=== PATIENT | female | born 1955 | race Caucasian/White ===

== ENCOUNTER 2019-01-06 13:46 | Outpatient (REF) | payer MEDICAID, SELFPAY ==
[2019-01-06 19:46] LABS: ALT 18 U/L (12-78); AST 15 U/L (15-37); Albumin 3.9 g/dL (3.4-5.0); Alkaline Phosphatase 67 U/L (46-116); BUN 16 mg/dL (7-18); Bilirubin, Total 0.3 mg/dL (0.2-1.0); CREATININE 0.88 mg/dL (0.55-1.02); Calcium 9.5 mg/dL (8.5-10.1); Chloride 103 mmol/L (98-107); Cholesterol 225 mg/dL (50-200); Glucose 91 mg/dL (70-100); HDL Cholesterol 74 mg/dL (40-60); LDL CHOLESTEROL 130 mg/dL (<100); Potassium 4.2 mmol/L (3.5-5.1); Sodium 140 mmol/L (136-145); TSH (W/Ref FT4) 3.76 uIU/mL (0.358-3.74); Total Protein 6.8 g/dL (6.4-8.2); Triglyceride 87 mg/dL (30-150)
[2019-01-06 20:21] LABS: FREE T4 1.04 ng/dL (0.76-1.46)
== END 2019-01-06 14:06 ==
LOC: NCHCN 13:46
PROVIDERS: PCP Nurse Practitioner; Visit Provider Nurse Practitioner
DX: I10 Essential (primary) hypertension (principal); E78.5 Hyperlipidemia, unspecified; E55.9 Vitamin D deficiency, unspecified; F32.9 Major depressive disorder, single episode, unspecified
CPT/HCPCS: 80053; 80061; 82306; 83721; 84439; 84443

== ENCOUNTER 2019-04-08 11:45 | Outpatient (CLI) | payer MEDICAID, SELFPAY ==
--- NOTE | 2019-04-08 11:38 | DI.RAD_ITS ---
SYMPTOM/DIAGNOSIS: PAIN LEFT KNEE: The bony structures and joint spaces appear intact. The possibility of a very small joint effusion could not be entirely excluded. The examination is otherwise unremarkable.
== END 2019-04-08 12:05 ==
PROVIDERS: PCP Nurse Practitioner; Visit Provider Orthopaedic Surgery
DX: M25.562 Pain in left knee (principal); M25.462 Effusion, left knee
CPT/HCPCS: 73560

== ENCOUNTER 2019-05-12 00:34 | Outpatient (CLI) | payer MEDICAID, SELFPAY ==
--- NOTE | 2019-05-12 12:02 | DI.MRI_ITS ---
SYMPTOMS/DIAGNOSIS: INTERNAL DERANGEMENT, LEFT KNEE, TWISTED 1 MO AGO, CLICKS AND HURTS TO BEND MRI OF THE LEFT KNEE: Comparison is made with April,. Fat-suppressed T2 axial, proton density and fat-suppressed T2 sagittal, T1 and fat-suppressed T2 coronal and proton density oblique sagittal sequences were performed. There is a moderate-sized joint effusion and March's cyst. The anterior and posterior cruciate ligaments appear intact. There is a considerable amount of edema around the medial collateral ligament, but no focal tear. The lateral collateral ligaments and extensor mechanism appear intact. The lateral meniscus appears intact. The medial meniscus shows horizontal abnormal high signal in the body and posterior horn. There is also some irregular signal near the meniscotibial attachment of the meniscus. There is high signal in the medial tibial plateau consistent with bone contusion or trabecular microfracture. The distal femur appears intact. There is some cartilage thinning over the medial femoral condyle and medial tibial plateau. No focal osteochondral defect is seen. There is edema in the popliteus muscle as well as in the tibialis anterior and tibialis posterior muscles. There is also edema in the anterior subcutaneous fat. The popliteus tendon appears intact. IMPRESSION: 1. Contusion of the medial tibial plateau. 2. Horizontal tear of the posterior horn and body of the medial meniscus, as well as abnormal signal near the meniscotibial attachment. 3. Joint effusion and March's cyst. 4. Muscle edema in the popliteus, tibialis anterior and tibialis posterior muscles. 5. Question of a sprain of the medial collateral ligament.
== END 2019-05-12 00:54 ==
PROVIDERS: PCP Nurse Practitioner; Visit Provider Orthopaedic Surgery
DX: M23.92 Unspecified internal derangement of left knee (principal); S83.242A Other tear of medial meniscus, current injury, left knee, initial encounter; M25.462 Effusion, left knee; M71.22 Synovial cyst of popliteal space [Baker], left knee; R60.0 Localized edema; M62.89 Other specified disorders of muscle
CPT/HCPCS: 73721

== ENCOUNTER 2019-06-24 00:21 | Outpatient (CLI) | payer MEDICAID, SELFPAY ==
--- NOTE | 2019-06-24 12:53 | DI.MAMMO_ITS ---
EXAM: MG MAMMO SCREENING MG MAMMO SCREENING CLINICAL HISTORY: SCREENING Z12.39 SCREENING Z12.39 TECHNIQUE: Mammograms were interpreted according to the usual protocol including computer analysis w [employer] CAD system, tomosynthesis and C-view imaging. COMPARISON: 2009 through 2014. FINDINGS: The breasts are composed of heterogeneously dense fibroglandular densities, Breast Density category C . No suspicious masses or suspicious microcalcifications are seen. No skin thickening or abnormal axillary lymph nodes are seen. There has been no significant change from prior exams. There is motion on the left MLO view. Patie nt should return for repeat left MLO view at no additional charge. IMPRESSION: Left breast: BIRADS Category 1, negative mammogram. Yearly screening mammography is recommended. Right breast: BI-RADS Cat 0 - Assessment Incomplete: Need additional imaging evaluation BREAST DENSITY: The mammogram demonstrates the patient's breast tissue is dense. Dense breast tissue is very common and is not abnormal but dense breast tissue can make it harder to find cancer on a ma mmogram. Also, dense breast tissue may increase their breast cancer risk. This information about the result of the mammogram report was provided to the patient to raise their awareness. Use this report when you speak with the patient about their risks for breast cancer, which includes their family hist ory. At that time, you may recommend for more screening tests (Ultrasound or MRI) as they might be us eful based on their risk. A negative radiographic report should not delay biopsy if a dominant or clinically suspicious mass is present. Up to ten percent of cancers are not identified on mammography. A negative report may reinforce clinical impression. Adenosis and dense breasts may obscure an underlying neoplasm. False positive reports average 6 to 10%.
== END 2019-06-24 00:41 ==
PROVIDERS: PCP Nurse Practitioner; Visit Provider Nurse Practitioner
DX: Z12.31 Encounter for screening mammogram for malignant neoplasm of breast (principal); R92.8 Other abnormal and inconclusive findings on diagnostic imaging of breast
CPT/HCPCS: 77063; 77067

== ENCOUNTER 2019-07-12 08:12 | Day surgery (SDC) | payer MEDICAID, SELFPAY ==
--- NOTE | 2019-07-08 10:02 | W.PREOPHP ---
Date of service: 07/08/19 Assessment and Plan Assessment and plan (1) Internal derangement of left knee: Status: Acute Assessment and plan: Left knee arthroscopy with partial medial meniscectomy. Details of surgery were discussed with patient as well as risks and pertinent anatomy. All questions were answered. History of Present Illness History of Present Illness Chief Complaint: Left knee pain Narrative: Naila is a 63-year-old female who comes in today for a preop history and physical for a left knee arthroscopy. For the last couple of months, she has been dealing with left knee pain that bothers her the most when she is walking on uneven ground, up and down stairs, or when she is squatting or kneeling. She does not remember any specific injury, but thinks that she might have been when her dog pulled her down when she was walking about 2 months ago. During this fall she had a twisting motion to her left knee. She has not improved with home exercises for an injection, so ultimately she had an MRI which revealed a torn medial meniscus of her left knee. Because she has failed conservative treatment, Dr. Wright does offer a left knee arthroscopy, and she is anxious to proceed. Pertinent Surgical Information Patient denies history of CVA, CA, angina, COPD, renal or liver disorders, hepatitis, bleeding disorders, diabetes, immune or thyroid disorders. No complications from anesthesia. Review of Systems Constitutional Constitutional: Denies fever(s) ENT Ears, Nose, Mouth, and Throat: Denies dizziness and Denies sore throat Cardiovascular Cardiovascular: Denies chest pain, Denies palpitations and Denies dyspnea Respiratory Respiratory: Denies cough and Denies dyspnea Gastrointestinal Gastrointestinal: Denies abdominal pain, Denies melena, Denies hematochezia, Denies diarrhea, Denies nausea and Denies vomiting Genitourinary Genitourinary: Denies hematuria and Denies dysuria Neurologic Neurologic: Denies dizziness Endocrine Endocrine: Denies palpitations [facility] Medical History (Updated 06/16/19 @ 10:57 by Sofia Pal RN) Alcoholism (Acute) Asthma (Chronic) Depression (Chronic) Fibromyalgia (Acute) High cholesterol (Chronic) History of narcotic use (Acute) previous narcotic overdose History of tobacco use (Acute) Hypertension (Chronic) Spinal stenosis (Acute) Surgical History (Updated 06/16/19 @ 10:58 by Sofia Pal RN) Fracture, Open Treatment (09/07/12) RIGHT FEMUR ORIF History of arthroscopic knee surgery (Chronic) History of carpal tunnel release (Acute) History of hysterectomy (Chronic) sparing her ovaries History of tubal ligation (Chronic) Replacement of total knee joint (08/19/12) RIGHT KNEE Social History (Updated 07/08/19 @ 10:18 by CATHERINE Rojas) Smoking/Tobacco Use Status: Current every day Tobacco Type: cigarettes Smoking packs per day: 1 Smoking cigarettes per day: 20.0 Alcohol Intake: current Alcohol type: beer Details: 12-24 per weekend Drug use: Never Do you feel safe in your relationship?: Yes Meds Home Medications and Allergies Home Medications Medication Instructions Recorded Confirmed Type amitriptyline 40 mg PO HS 01/14/13 07/08/19 History hydrochlorothiazide 25 mg PO QAM 01/14/13 07/08/19 History lisinopril 20 mg PO QAM 01/14/13 07/08/19 History omeprazole 40 mg PO DAILY tab-cap 01/14/13 07/08/19 History orphenadrine citrate 100 mg PO QAM 01/14/13 07/08/19 History pravastatin 80 mg PO HS 01/14/13 07/08/19 History trazodone 150 mg PO HS tab-cap 01/14/13 07/08/19 History amlodipine 5 mg PO DAILY tab-cap 01/13/14 07/08/19 History oxaprozin 1,200 mg PO DAILY tab-cap 01/13/14 07/08/19 History celecoxib [Celebrex] 200 mg PO DAILY tab-cap 08/23/15 07/08/19 History albuterol sulfate [Proair Hfa] 2 puff INHALATION PRN PRN 08/22/16 07/08/19 History fluticasone propion-salmeterol 1 ea INHALATION BID 08/22/16 07/08/19 History [Advair 250-50 Diskus] sertraline 50 mg PO DAILY 12/16/16 07/08/19 History Allergies Allergy/AdvReac Type Severity Reaction Status Date / Time venom-honey bee Allergy Severe Anaphylaxsi Verified 07/08/19 09:58 s latex AdvReac Severe Skin Rash Verified 07/08/19 09:58 hydrocodone bitartrate AdvReac Intermediate abdominal Verified 07/08/19 09:58 [From Vicodin] pain chlorine AdvReac Mild Skin Rash Uncoded 07/08/19 09:58 Exam HENNY Head: normocephalic and atraumatic General nose exam: no nasal discharge Throat: uvula midline and no uvular edema Other: soft palate rises symmetrically, no erythema Eyes Conjunctivae: conjunctivae normal Sclera: sclerae normal Pupils: PERRL Resp Effort & Inspection: normal respiratory effort Auscultation: clear to auscultation bilaterally and no wheezes Cardio Rate: regular rate Rhythm: regular rhythm Heart Sounds: S1 normal, S2 normal and no murmurs GI Palpation: soft, no hepatosplenomegaly and nontender Auscultation: normal bowel sounds
[2019-07-12] VITALS (8 sets, daily range): BP systolic 133–158; BP diastolic 74–95; PULSE 73–93; RESP 11–18; TEMP 36.2–36.6; O2SAT 95–100
[2019-07-12] MEDS: Lactated Ringers 1,000 ML 80 ML IV ×2 (08:59→13:05)
[2019-07-12] MEDS: ceFAZolin 2 GM/50 ML BAG IVPB (11:00)
--- NOTE | 2019-07-12 12:09 | W.PM.DSUDISC ---
Discharge Plan Disposition Patient Disposition: HOME Condition: Good Discharge Details Attending Provider: Juan Daniel Wright Primary Care Provider: Cece Herrmann Home Meds and New Rx's Prescriptions: New ibuprofen 800 mg tablet 800 mg PO TID Qty: 30 RF: 0 oxycodone-acetaminophen 5-325 mg tablet 1 tab PO Q6H PRN (Reason: pain) Qty: 20 RF: 0 Continued omeprazole 40 MG capsule,delayed release(DR/EC) 40 mg PO DAILY RF: 0 pravastatin 80 MG tablet 80 mg PO HS RF: 0 amitriptyline 10 MG tablet 40 mg PO HS RF: 0 trazodone 150 MG tablet 150 mg PO HS RF: 0 orphenadrine citrate 100 MG tablet extended release 100 mg PO QAM RF: 0 hydrochlorothiazide 25 MG tablet 25 mg PO QAM RF: 0 lisinopril 40 MG tablet 20 mg PO QAM RF: 0 amlodipine 5 MG tablet 5 mg PO DAILY RF: 0 oxaprozin 600 MG tablet 1,200 mg PO DAILY RF: 0 celecoxib [Celebrex] 200 MG capsule 200 mg PO DAILY RF: 0 fluticasone propion-salmeterol [Advair Diskus] 1 EACH blister with device 1 ea Inhalation BID RF: 0 albuterol sulfate [ProAir HFA] 200 PUFF HFA aerosol inhaler 2 puff Inhalation PRN PRNRF: 0 sertraline 50 MG tablet 50 mg PO DAILY RF: 0 Discharge Instructions Additional Instructions: Elevate L leg on 1-2 pillows as much as possible for next 48 hours. Apply cryocuff to L knee 4 times/day for 1 hour each time. May use more if desired. Crutches to walk. May bear weight as tolerated to L leg. Discontinue crutches when you no longer limp. May remove dressings, shower and get incisions wet in 72 hours. Leave incisions uncovered when they are dry and sealed. Outpatient physical therapy on or Friday. Follow up with in 2 weeks. Take ibuprofen as prescribed for 10 days to decrease swelling and inflammation. Take oxycodone for breakthru pain, if needed. Stand Alone Forms: [facility] Post op Instructions, Liane Rizzo ([facility]) Referrals: Juan Daniel Wright MD [ [facility] STAFF PHYSICIAN] - (f/u in 2 weeks.) Equipment/Supplies: Partial Weight Bearing Crutches Activity:: Activity as Tolerated Remove Dressings/Wound Care:: 72 hours Shower/Bathe:: 72 hours Diet:: As Tolerated Discharge Orders Discharge Orders: Discharge Order (Routine); Ordered 07/12/19 Ordered By: Juan Daniel Wright DS: Diagnosis Discharge Diagnosis (1) Internal derangement of left knee: Status: Acute
[2019-07-12] MEDS: Droperidol 5 MG/2 ML VIAL 0.625 MG IVP (12:30)
[2019-07-12] MEDS: fentaNYL 100 MCG/2 ML VIAL IVP ×2 (12:35→12:55)
--- NOTE | 2019-07-16 13:59 | ROE_ITS ---
DATE OF PROCEDURE: July 12, 2019 PREOPERATIVE DIAGNOSIS: Internal derangement, left knee. POSTOPERATIVE DIAGNOSIS: Same, due to medial compartment osteoarthritis and synovitis with a medial patellar plica. PROCEDURE: Arthroscopy of the left knee with limited chondroplasty of the medial tibial plateau and a limited synovectomy with excision of the medial patellar plica. ANESTHESIA: General. SURGEON: Juan Daniel Wright M.D. INDICATIONS: This is a 63-year-old white female who began having a problem with her left knee after she was knocked down to the ground by her dog about 9 to 10 weeks prior to admission. She was initia lly treated conservatively with anti-inflammatory medications and physical therapy. She subsequently had an intra-articular cortisone injection without benefit. She had an MRI scan which showed an abn ormal signal in the medial meniscus that was suggestive of a tear. She also had a popliteal cyst, as well as what appeared to be some articular cartilage injury to the medial tibial plateau. Because o f failure to improve with conservative treatment, arthroscopy was recommended. The risks and complic ations of the procedure were explained to the patient in detail preoperatively. PROCEDURE: The patient was taken to the operating room on 07/12/19. She was placed supine on the ope rating table and a general anesthetic was administered. The left thigh was placed in the arthroscopi c leg palmer and then the left knee was prepped and draped free in the usual sterile fashion. Arthro scopic portals were established. The left knee was inflated with normal saline solution using the ar throscopy pump and then routine arthroscopic examination proceeded. Intraoperative photographs were obtained to document findings. Upon entering the medial compartment she was noted to have some chondral fragmentation of the articul ar cartilage of the medial tibial plateau that was located beginning at the inner margin of the media l meniscus and extending to the peripheral rim of the meniscus. Almost full-thickness fragments of articular cartilage in this area were then sharply debrided and excised using high-radio frequency e lectrocautery wand and punch forceps. The remaining articular cartilage was contoured and smoothed s o there were no significant step-offs. The medial meniscus was intact. I probed the medial meniscus under direct vision with a right-angle probe and it was fully stable. No occult tears were identifi ed. The intercondylar notch showed intact anterior and posterior cruciate ligaments. The lateral compartment showed a normal lateral meniscus that was stable to probing under direct visi on. The articular cartilage in the lateral compartment was undamaged. The patella was difficult to visualize because of moderate hyperemic synovium located in the patellof emoral joint and in the medial gutter. Using the high-radio frequency electrocautery wand, a limited synovectomy was performed to visualize the patellofemoral joint. Patellar tracking was good and the re was no significant damage to the articular cartilage in the patellofemoral joint. As I proceeded further medially, there was an obvious thickened patellar plica and on the superior aspect of the pli ca there was moderate hyperemic and hypertrophic synovium present. I debrided the synovium using a h igh-radio frequency electrocautery wand and then I resected the plica, resulting in adventist of th e volume in the medial gutter. At this point the knee was copiously irrigated with saline solution u sing the arthroscopy pump until the outflow was clear. 20 cc's of 0.5% Marcaine with an epinephrine solution, along with 4 mg of morphine, were instilled into the left knee and all instruments were rem lance from the knee. The arthroscopy portals were infiltrated with 0.5% Marcaine with an epinephrine solution and approximated with interrupted #4-0 Nylon sutures. Sterile dressings were applied, follo wed by a light compressive dressing to the left knee. The patient tolerated the procedure well. She experienced no intraoperative complications. Her anesthesia was reversed without complications. Billy noble was discharged to the recovery room in good condition. The patient was later discharged home from the Day Surgery Unit when fully recovered from her general anesthesia. She was given instructions to use crutches to walk, weightbearing as tolerated to the l eft leg. She is to try to elevate her left knee on 1 to 2 pillows as much as possible for the next 4 8 to 72 hours postop. She is to use a CryoCuff to the left knee four times a day for an hour each ti me. She may remove her dressings, shower and get her incisions wet after 48 hours. She may leave th e incisions uncovered when they are dry and sealed. She will take ibuprofen 600 mg p.o. t.i.d. for t en days to help with inflammation and swelling in the knee. She was given a prescription for breakth rough pain of Oxycodone with APAP 5/325, one tablet every six hours, as needed. [facility] for range of motion and strengthening of her left knee. She s diamond follow-up with me in two weeks.
== END 2019-07-12 14:30 | disposition home or self-care (01) ==
PROVIDERS: PCP Nurse Practitioner; Visit Provider Orthopaedic Surgery
PROC: (CPT 29870; principal; 2019-07-12 10:00)
DX: M17.12 Unilateral primary osteoarthritis, left knee (principal); M23.92 Unspecified internal derangement of left knee; M67.52 Plica syndrome, left knee; M65.9 Synovitis and tenosynovitis, unspecified; W54.1XXA Struck by dog, initial encounter; X50.1XXA Overexertion from prolonged static or awkward postures, initial encounter; I10 Essential (primary) hypertension; F17.210 Nicotine dependence, cigarettes, uncomplicated
CPT/HCPCS: 29875; NC; J0690; J1100; J1790; J1885; J3010

== ENCOUNTER 2020-04-05 16:04 | Outpatient (REF) | payer MEDICAID, SELFPAY ==
[2020-04-05 21:53] LABS: Abs Immature Grans 0.02 10^3/uL (0.0-0.06); Absolute Basophil Count 0.08 10^3/uL (0.0-0.2); Absolute Eosinophil Count 0.42 10^3/uL (0.0-0.7); Absolute Lymphocyte Count 1.43 10^3/uL (1.2-3.4); Absolute Monocyte Count 0.35 10^3/uL (0.1-0.8); Absolute Neutrophil Count 3.02 10^3/uL (1.2-6.7); Basophils % 1.5; Eosinophils % 7.9; HCT 42.1 % (36.0-46.0); HGB 14.2 g/dL (11.2-15.7); Immature Grans % 0.4; Lymphocytes % 26.9; MCH 30.9 pg (27.0-33.0); MCHC 33.7 % (32.0-36.0); MCV 91.7 fL (80-95); MPV 11.5 fL (8.0-11.0); Monocytes % 6.6; Neutrophils % 56.7; Platelet Count 261 10^3/uL (130-400); RBC 4.59 10^6/uL (3.93-5.22); RDW 13.5 % (11.7-14.6); RDW-SD 46.1 fL; WBC 5.32 10^3/uL (4.4-10.8)
[2020-04-05 22:18] LABS: ALT 16 U/L (14-59); AST 17 U/L (15-37); Albumin 3.9 g/dL (3.4-5.0); Alkaline Phosphatase 72 U/L (46-116); Anion Gap 9.1 mmol/L (3-11); BUN 16 mg/dL (7-18); Bilirubin, Total 0.3 mg/dL (0.2-1.0); CO2 25.9 mmol/L (21.0-32.0); CREATININE 0.85 mg/dL (0.55-1.02); Calcium 9.3 mg/dL (8.5-10.1); Chloride 101 mmol/L (98-107); Glucose 113 mg/dL (74-106); Potassium 4.6 mmol/L (3.5-5.1); Sodium 136 mmol/L (136-145); TSH (W/Ref FT4) 2.38 uIU/mL (0.36-3.74)
== END 2020-04-05 16:24 ==
LOC: NCHCN 16:04
PROVIDERS: PCP Nurse Practitioner; Visit Provider Physician Assistant
DX: I10 Essential (primary) hypertension (principal); E78.5 Hyperlipidemia, unspecified; E55.9 Vitamin D deficiency, unspecified
CPT/HCPCS: 80053; 82306; 84443; 85025

== ENCOUNTER 2020-05-03 14:38 | Outpatient (CLI) | payer MEDICAID, SELFPAY ==
--- NOTE | 2020-05-03 11:15 | DI.RAD_ITS ---
EXAM: XR KNEE LT 2V AP,LAT CLINICAL HISTORY: pain TECHNIQUE: COMPARISON: CR XR knee LT 2V AP,lat from 04/08/2019 FINDINGS: Two views were obtained. There is moderate narrowing of the cartilaginous joint space of the medial tibiofemoral joint. Small calcific or ossific body is seen adjacent to the margin of the medial tibi al plateau, this may be calcific or ossific. There is subchondral sclerosis of the medial femoral co ndyle and medial tibial plateau. There is slight varus angulation at the knee. Mild marginal osteop hytes noted involving the lateral tibiofemoral joint. IMPRESSION: Degenerative changes involving medial tibiofemoral joint as described above. Changes are significant ly increased in comparison with prior examination of 04/08/2019. Presence of new calcific or ossific body adjacent to the margin of the proximal tibia medially would raise the question of an interval i njury at this site. RADIATION DOSE DELIVERED: Total DLP
== END 2020-05-03 14:58 ==
PROVIDERS: PCP Nurse Practitioner; Referring Provider Nurse Practitioner; Visit Provider Orthopaedic Surgery
DX: M17.12 Unilateral primary osteoarthritis, left knee (principal)
CPT/HCPCS: 73560

== ENCOUNTER 2020-10-23 16:56 | Outpatient (REF) | payer MEDICAID, SELFPAY ==
[2020-10-23 19:09] LABS: ALT 20 U/L (14-59); AST 15 U/L (15-37); Albumin 3.6 g/dL (3.4-5.0); Alkaline Phosphatase 62 U/L (46-116); Anion Gap 8.7 mmol/L (3-11); BUN 25 mg/dL (7-18); Bilirubin, Total 0.2 mg/dL (0.2-1.0); CO2 27.3 mmol/L (21.0-32.0); CREATININE 0.8 mg/dL (0.55-1.02); Calcium 9.4 mg/dL (8.5-10.1); Chloride 104 mmol/L (98-107); Glucose 111 mg/dL (74-106); Potassium 4.1 mmol/L (3.5-5.1); Sodium 140 mmol/L (136-145); Total Protein 6.5 g/dL (6.4-8.2)
[2020-10-23 19:12] LABS: Hemoglobin A1C 5.6 % (<5.7)
== END 2020-10-23 16:57 | disposition home or self-care (01) ==
LOC: NCHCN 16:56
PROVIDERS: PCP Nurse Practitioner; Visit Provider Physician Assistant
DX: I10 Essential (primary) hypertension (principal); R73.9 Hyperglycemia, unspecified
CPT/HCPCS: 80053; 83036

== ENCOUNTER 2020-11-02 12:19 | Outpatient (CLI) | payer MEDICAID, SELFPAY ==
--- NOTE | 2020-11-02 12:00 | DI.RAD_ITS ---
EXAM: XR KNEE LT 1V CLINICAL HISTORY: OA left knee. TECHNIQUE: 2D digital imaging was performed. COMPARISON: CR XR KNEE LT 2V AP,LAT from 05/03/2020 FINDINGS: Lateral view weight-bearing of the left knee reveals significant joint space narrowing. Calcificatio n posteriorly is probably fabella but I note on the frontal view performed 05/03/2020 there is a jose lar size calcification off the medial joint space. In addition on this lateral view we note a bony e xcrescence off the anterior articular surface of the femoral condyles. IMPRESSION: DATA REPOSITORY: RADIATION DOSE DELIVERED:
--- NOTE | 2020-11-02 12:00 | DI.RAD_ITS ---
EXAM: XR STANDING ALIGNMENT CLINICAL HISTORY: OA L knee. TECHNIQUE: 2D digital imaging was performed. COMPARISON: No exams were available for comparison FINDINGS: There is a right knee prosthesis. Appears to be in satisfactory position. Addition bone density at the junction of the mid and distal thirds of the ipsilateral femur is probably healed fracture site. There are advanced degenerative narrowing changes of the medial compartment of the opposite-left kne e. Left hip appears unremarkable. 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 Visualized ankles appear unremarkable. IMPRESSION: DATA REPOSITORY: RADIATION DOSE DELIVERED:
== END 2020-11-02 12:20 | disposition home or self-care (01) ==
LOC: DIORS 12:19
PROVIDERS: PCP Physician Assistant; Referring Provider Physician Assistant; Visit Provider Physician Assistant
DX: M17.12 Unilateral primary osteoarthritis, left knee (principal); Z96.651 Presence of right artificial knee joint
CPT/HCPCS: 73560; 77073

== ENCOUNTER 2020-11-24 03:35 | Outpatient (CLI) | payer MEDICAID, SELFPAY ==
--- NOTE | 2020-11-24 12:59 | DI.MAMMO_ITS ---
EXAM: MG MAMMO SCREENING CLINICAL HISTORY: SCREENING, DENSE BREASTS,H/O ABNL RT BREAST TECHNIQUE: Mammograms were interpreted according to the usual protocol including computer analysis w [employer] CAD system, tomosynthesis and C-view imaging. COMPARISON: 2010 through 2018 FINDINGS: The breasts are composed of scattered fibroglandular densities, Breast Density category B. No suspicious masses or suspicious microcalcifications are seen. No skin thickening or abnormal axillary lymph nodes are seen. There has been no significant change from prior exams. IMPRESSION: BI-RADS Category 1, Negative mammogram Yearly screening mammography is recommended. Breast Density - Category B, scattered fibroglandular densities. A negative radiographic report should not delay biopsy if a dominant or clinically suspicious mass is present. Up to ten percent of cancers are not identified on mammography. A negative report may reinforce clinical impression. Adenosis and dense breasts may obscure an underlying neoplasm. False positive reports average 6 to 10%. Patient will receive a letter notifying them of these results.
== END 2020-11-24 03:55 ==
PROVIDERS: PCP Physician Assistant; Visit Provider Physician Assistant
DX: Z12.31 Encounter for screening mammogram for malignant neoplasm of breast (principal)
CPT/HCPCS: 77063; 77067

== ENCOUNTER 2021-09-28 16:48 | Outpatient (REF) | payer MEDICAID, SELFPAY ==
[2021-09-28 19:34] LABS: Anion Gap 6.6 mmol/L (3-11); BUN 22 mg/dL (7-18); CO2 29.4 mmol/L (21.0-32.0); CREATININE 0.8 mg/dL (0.55-1.02); Calcium 9.3 mg/dL (8.5-10.1); Chloride 102 mmol/L (98-107); Glucose 104 mg/dL (74-106); Sodium 138 mmol/L (136-145)
== END 2021-09-28 16:49 | disposition home or self-care (01) ==
LOC: NCHCN 16:48
PROVIDERS: PCP Physician Assistant; Visit Provider Physician Assistant
DX: I10 Essential (primary) hypertension (principal)
CPT/HCPCS: 80048

== ENCOUNTER 2022-02-18 03:52 | Outpatient (CLI) | payer MEDICAID, SELFPAY ==
[2022-02-18 13:52] LABS: HCT 40.1 % (36.0-46.0); HGB 13.5 g/dL (11.2-15.7); MCH 29.9 pg (27.0-33.0); MCHC 33.7 % (32.0-36.0); MCV 89 fL (80-95); MPV 10.5 fL (8.0-11.0); Platelet Count 219 10^3/uL (130-400); RBC 4.51 10^6/uL (3.93-5.22); RDW 13.1 % (11.7-14.6); WBC 5.54 10^3/uL (4.4-10.8)
[2022-02-18 14:58] LABS: Source Nasal/Nares
[2022-02-18 15:27] LABS: Anion Gap 8.4 mmol/L (3-11); BUN 16 mg/dL (7-18); CO2 28.6 mmol/L (21.0-32.0); CREATININE 0.8 mg/dL (0.55-1.02); Calcium 9.6 mg/dL (8.5-10.1); Chloride 100 mmol/L (98-107); Glucose 113 mg/dL (74-106); Sodium 137 mmol/L (136-145)
[2022-02-18 20:15] LABS: COVID-19 PCR Negative (Negative)
== END 2022-02-18 03:53 | disposition home or self-care (01) ==
PROVIDERS: PCP Physician Assistant; Visit Provider Student in an Organized Health Care Education/Training Program
DX: M25.562 Pain in left knee (principal); M17.12 Unilateral primary osteoarthritis, left knee; Z20.822 Contact with and (suspected) exposure to COVID-19; Z01.818 Encounter for other preprocedural examination; Z01.812 Encounter for preprocedural laboratory examination
CPT/HCPCS: 36415; 80048; 85027; 87635

== ENCOUNTER 2022-02-18 04:17 | Outpatient (CLI) | payer MEDICAID, SELFPAY | END 2022-02-18 04:18 | disposition home or self-care (01) | LOC: LBO 04:17 | PROVIDERS: PCP Physician Assistant; Visit Provider Student in an Organized Health Care Education/Training Program ==

== ENCOUNTER 2022-02-20 05:49 | Day surgery (SDC) | payer MEDICAID, SELFPAY ==
[2022-02-20] VITALS (13 sets, daily range): BP systolic 71–155; BP diastolic 48–85; PULSE 62–89; RESP 12–21; TEMP 35.9–36.4; O2SAT 96–99; BMI 29.7
--- NOTE | 2022-02-20 07:39 | PDOC.DSDIS_ITS ---
Discharge Plan Disposition Patient Disposition: HOME Condition: Stable Discharge Details Reason For Visit: Left TKA Attending Provider: Efrain Chin Primary Care Provider: Jennifer Best Home Meds and New Rx's Prescriptions: New aspirin 81 mg tablet,delayed release (DR/EC) 81 mg PO BID Qty: 60 0RF acetaminophen 500 mg capsule 1,000 mg PO Q8H PRN PRNQty: 90 0RF gabapentin 300 mg capsule 300 mg PO QHS Qty: 14 0RF oxycodone 5 mg tablet 5 mg PO Q4H PRNQty: 18 0RF Continued amlodipine 5 mg tablet 5 mg PO DAILY hydrochlorothiazide 50 mg tablet 50 mg PO DAILY sertraline 50 mg tablet 75 mg PO DAILY amitriptyline 50 mg tablet 50 mg PO DAILY celecoxib [Celebrex] 100 mg capsule 100 mg PO BID orphenadrine citrate 100 mg tablet extended release 100 mg PO BID loratadine [Allergy Relief (loratadine)] 10 mg tablet 10 mg PO DAILY triamcinolone acetonide 0.1 % Cream 1 applic TOPICAL BID PRN hydrocortisone 2.5 % Cream 1 applic TOPICAL BID PRN omeprazole 40 MG capsule,delayed release(DR/EC) 40 mg PO DAILY pravastatin 80 MG tablet 80 mg PO HS trazodone 150 MG tablet 150 mg PO HS lisinopril 40 MG tablet 40 mg PO QAM oxaprozin 600 MG tablet 1,200 mg PO DAILY albuterol sulfate [ProAir HFA] 200 PUFF HFA aerosol inhaler 2 puff Inhalation Q4H PRN Discharge Instructions Additional Instructions: Total Hip Discharge Instructions Activity: The most important activity is to walk. You should try to take short walks a few times a day. You have no restrictions on movement or positioning, but do not try to force what you do. You will find some stiffness and weakness with hip flexion (lifting your knee). Do not try to strengthen this too early, continue to practice walking and stairs and this will come. - Outpatient physical therapy can be helpful to help return you to a normal gait and improve your flexibility and strength. This can start around 2 weeks. For some patients, it?s not necessary. Usually this is determined at the time of discharge or at the first post-operative visit. - You should wear the PILI hose on both legs for 2 weeks. Dressing: Keep the surgical dressing in place for at least one week. After the first week it may be removed and replace with light gauze and tape or nothing. It may get wet after 3 days but avoid soaking the dressing. If it gets wet, just lightly pat dry. It is important to always keep some gauze between skin fo lds, especially when you are sitting. Spend some time with the wound exposed when you are lying flat as the incision does wrinkle onto itself. Medications: - You should take Tylenol and an anti-inflammatory Celebrex as your primary pain control medications. If the Celebrex is too expensive or not covered, please call the office for another alternative (Advil/Ibuprofen or Naproxen/Aleve). - You have been prescribed a stronger pain medication Oxycodone for breakthrough pain, take as needed as prescribed. - Continue with your previously prescribed stomach acid reduction agent Omeprazole to help reduce stomach acid and reflux. - You will be taking Aspirin 81mg twice a day for DVT prevention unless instructed otherwise. - If you have constipation you should take Colace or Miralax (both [id number]). It takes most people 3-4 days to have a bowel movement. Follow-up: 2 weeks If you have any acute concerns or questions, please do not hesitate to contact the office at [phone]. You may contact Dr. Chin with any questions after hours through the hospital at [phone] or on his cell phone at [phone]. Stand Alone Forms: Anesthesia Discharge Inst., Anes.Nerve Block Instructions, Liane Rizzo ([facility]) Referrals: Efrain Chin MD [ [facility] STAFF PHYSICIAN] - Equipment/Supplies: Walker Activity:: Activity as Tolerated Remove Dressings/Wound Care:: Do Not Remove Shower/Bathe:: 72 hours Diet:: As Tolerated Discharge Orders Discharge Orders: Discharge Order (Routine); Ordered 02/20/22 Ordered By: Siomara Rendon DS: Diagnosis Discharge Diagnosis (1) Osteoarthritis of left knee: Status: Acute
[2022-02-20] MEDS: Celecoxib 200 MG CAP 400 MG PO (07:53)
[2022-02-20] MEDS: Acetaminophen 500 MG TAB 1000 MG PO (07:53)
[2022-02-20] MEDS: Gabapentin 300 MG CAP PO (07:54)
[2022-02-20] MEDS: Lactated Ringers 1,000 ML 80 ML IV ×2 (07:54→11:05)
--- NOTE | 2022-02-20 09:00 | W.ANESPRE ---
General Info Date of Service Date Performed: 02/20/22 Height: 5 ft 8 in Weight: 88.6 kg Body Mass Index (BMI): 29.7 Surgical Procedure: Operation Date: 02/20/22 11:25 Proposed Procedure Side Surgeon p Knee Total Arthroplasty Cemented CR Left Efrain Chin MD Meds Allergies and Home Medications Allergies Allergy/AdvReac Type Severity Reaction Status Date / Time venom-honey bee Allergy Severe Anaphylaxsi Verified 02/19/22 10:35 s pollen extracts Allergy Intermediate Unverified 02/19/22 10:35 latex AdvReac Severe Skin Rash Verified 02/19/22 10:35 hydrocodone bitartrate AdvReac Intermediate abdominal Verified 02/19/22 10:35 [From Vicodin] pain chlorine AdvReac Mild Skin Rash Uncoded 02/19/22 10:35 Home Medication Medication Instructions Recorded lisinopril 40 mg tablet 40 mg PO QAM 01/14/13 omeprazole 40 mg capsule,delayed 40 mg PO DAILY 01/14/13 release pravastatin 80 mg tablet 80 mg PO HS 01/14/13 trazodone 150 mg tablet 150 mg PO HS 01/14/13 oxaprozin 600 mg tablet 1,200 mg PO DAILY 01/13/14 albuterol sulfate 90 mcg/actuation 2 puff inhalation Q4H PRN 08/22/16 aerosol inhaler (ProAir HFA) hydrocortisone 2.5 % topical cream 1 applic topical BID PRN 01/14/20 triamcinolone acetonide 0.1 % 1 applic topical BID PRN 01/14/20 topical cream amitriptyline 50 mg tablet 50 mg PO DAILY 02/12/22 amlodipine 5 mg tablet 5 mg PO DAILY 02/12/22 celecoxib 100 mg capsule (Celebrex) 100 mg PO BID 02/12/22 hydrochlorothiazide 50 mg tablet 50 mg PO DAILY 02/12/22 loratadine 10 mg tablet (Allergy 10 mg PO DAILY 02/12/22 Relief (loratadine)) orphenadrine citrate 100 mg 100 mg PO BID 02/12/22 tablet,extended release sertraline 50 mg tablet 75 mg PO DAILY 02/12/22 acetaminophen 500 mg capsule 1,000 mg PO Q8H PRN PRN #90 caps 02/20/22 aspirin 81 mg tablet,delayed 81 mg PO BID #60 tabs 02/20/22 release gabapentin 300 mg capsule 300 mg PO QHS #14 caps 02/20/22 oxycodone 5 mg tablet 5 mg PO Q4H PRN #18 tabs 02/20/22 Current Visit Medications: Current Medications Generic Name Dose Route Start Last Admin Trade Name Freq PRN Reason Stop Dose Admin Acetaminophen 1,000 mg 02/20/22 06:00 02/20/22 07:53 Acetaminophen 500 Mg Tab PO 02/20/22 16:00 1,000 mg PREOP SARA Administration Acetaminophen 1,000 mg 02/20/22 14:00 Acetaminophen 500 Mg Tab PO TID SARA Aspirin 81 mg 02/20/22 20:00 Aspirin E.C. 81 Mg Tabec PO BID SARA Celecoxib 400 mg 02/20/22 06:00 02/20/22 07:53 Celecoxib 200 Mg Cap PO 02/20/22 16:00 400 mg PREOP SARA Administration Celecoxib 200 mg 02/20/22 20:00 Celecoxib 200 Mg Cap PO BID SARA Docusate Sodium 100 mg 02/20/22 07:36 Docusate Sodium 100 Mg Cap PO BID PRN PRN Constipation Gabapentin 300 mg 02/20/22 06:00 02/20/22 07:54 Gabapentin 300 Mg Cap PO 02/20/22 16:00 300 mg PREOP SARA Administration Gabapentin 300 mg 02/20/22 22:00 Gabapentin 300 Mg Cap PO HS SARA Hydromorphone HCl 0.5 mg 02/20/22 07:36 Hydromorphone 2 Mg/Ml Vial IVP Q2H PRN PRN Tranexamic Acid 1,000 mg/ 60 mls @ 360 mls/hr 02/20/22 06:00 Sodium Chloride IVPB 02/20/22 16:00 PREOP SARA Ringer's Solution 1,000 mls @ 80 mls/hr 02/20/22 06:00 02/20/22 07:54 IV 03/21/22 23:59 80 mls/hr INFUSION SARA Administration Cefazolin Sodium/Dextrose 2 gm in 50 mls @ 100 mls/hr 02/20/22 06:00 Ancef Duplex IVPB 03/21/22 23:59 PREOP SARA Cefazolin Sodium/Dextrose 1 gm in 50 mls @ 100 mls/hr 02/20/22 17:00 Ancef Duplex IVPB 02/21/22 09:29 Q8H SARA IV Miscellaneous Supplies 1 each 02/20/22 06:00 Iv Access IV 03/21/22 23:59 DIRECTED SARA Ondansetron HCl 4 mg 02/20/22 07:36 Ondansetron 4 Mg/2 Ml Vial IVP Q6H PRN PRN Nausea Oxycodone HCl 0 mg 02/20/22 07:36 Oxycodone 5 Mg Tab PO Q3H PRN PRN Pain Pantoprazole Sodium 40 mg 02/21/22 07:30 Pantoprazole 40 Mg Tabcr PO DAILY@0730 SARA Sodium Chloride 0 ml 02/20/22 06:00 Normal Saline Flush 10 Ml Syr IV 03/21/22 23:59 PRN PRN Sodium Chloride 0 ml 02/20/22 06:00 Normal Saline 10 Ml Vial IJ 03/21/22 23:59 DIRECTED PRN Sterile Water 0 ml 02/20/22 06:00 Water,Injection,Sterile 10 Ml Vial IJ 03/21/22 23:59 DIRECTED PRN PFSH Active Problems Active Problems: Problem Status Onset Code Tenosynovitis, wrist 07/06/14 M65.9 Tenosynovitis 03/31/14 M65.9 Internal derangement of left knee M23.92 Osteoarthritis of left knee M17.12 Medical History Medical History Alcohol abuse Alcoholism Asthma Chronic low back pain Depression Fibromyalgia High cholesterol History of femur fracture R periprothestic History of fracture of nasal bone History of herniated intervertebral disc History of narcotic use previous narcotic overdose pt. denies this 02/19/22 History of tobacco use Hypertension IBS (irritable bowel syndrome) Left knee pain Osteoarthritis Spinal stenosis Vitamin D deficiency Surgical History Surgical History Fracture, Open Treatment (09/07/12) RIGHT FEMUR ORIF History of arthroscopic knee surgery History of carpal tunnel release History of hysterectomy sparing her ovaries History of tubal ligation Replacement of total knee joint (08/19/12) RIGHT KNEE Tobacco Smoking/Tobacco Use Status: Former Tobacco Use Alcohol Alcohol Intake: current Alcohol intake frequency: a few times a week Alcohol type: beer Details: 12-24 per weekend Substance Use Substance use: Never Substance use type: does not use Details: pt. states on weekends she drinks 6 24oz cans on weekends Vital Signs and Lab Results Vital Signs Most Recent Vital Signs in EMR: Most Recent Vital Signs Temp Pulse Resp BP Pulse Ox 36.3 C L 89 16 105/54 L 98 02/20/22 07:27 02/20/22 07:27 02/20/22 07:27 02/20/22 07:27 02/20/22 07:27 Lab Results Blood Type / Crossmatch: No Data to Display Complete Blood Count: White Blood Count 5.54 10^3/uL (4.4-10.8) 02/18/22 13:45 Red Blood Count 4.51 10^6/uL (3.93-5.22) 02/18/22 13:45 Hemoglobin 13.5 g/dL (11.2-15.7) 02/18/22 13:45 Hematocrit 40.1 % (36.0-46.0) 02/18/22 13:45 Platelet Count 219 10^3/uL (130-400) 02/18/22 13:45 Complete Metabolic Panel: Sodium Level 137 mmol/L (136-145) 02/18/22 13:45 Potassium Level 4.0 mmol/L (3.5-5.1) 02/18/22 13:45 Chloride Level 100 mmol/L (98-107) 02/18/22 13:45 Carbon Dioxide Level 28.6 mmol/L (21.0-32.0) 02/18/22 13:45 Blood Urea Nitrogen 16 mg/dL (7-18) 02/18/22 13:45 Creatinine 0.8 mg/dL (0.55-1.02) 02/18/22 13:45 Estimated GFR/1.73 m2 >= 60.00 (mL/min/1.73m2) 02/18/22 13:45 Calcium Level 9.6 mg/dL (8.5-10.1) 02/18/22 13:45 Glucose Level 113 mg/dL (74-106) H 02/18/22 13:45 Liver Function Panel: No Data to Display Coagulation Panel: No Data to Display Cardiac Panel: No Data to Display Arterial Blood Gas: No Data to Display Venous Blood Gas: No Data to Display Pancreas Panel: No Data to Display Thyroid Panel: No Data to Display Infectious Disease: Coronavirus (COVID-19)(PCR) Negative (Negative) 02/18/22 14:32 Coronavirus 2019 Source Nasal/Nares 02/18/22 14:32 Blood Cultures: No Data to Display Toxicology Panel: No Data to Display Anesthesia Assessment and Plan Anesthesia History Personal History: No History of Anesthesia Complications Family History: No Family History of Anesthesia Complications Exercise Tolerance Exercise Tolerance: Metabolic Equivalents>4 Pertinent Negatives Pertinent Negatives: No Major Cardiovascular Symptoms or Complaints and No History of CVA/TIA Cardiac & Pulmonary Exam Cardiac Exam: Normal S1/S2 Heart Sounds Pulmonary Exam: Clear Bilateral Breath Sounds Implantable Cardiac Device Does patient have a Pacemaker or an ICD?: No Airway Exam Known Difficult Airway: No Mallampati Class: 2 Mouth Opening: Normal (> 3cm) Thyromental Distance: Greater than 3 cm Neck Range of Motion: Full ROM Neck Circumference: Normal Teeth Condition: Normal Dentition ASA Classification ASA Score: ASA 2 Emergency Case?: No NPO Status NPO Status: NPO Clears >2 hours, Solids >8 hours Anesthesia Plan Resuscitation Status: Full Code Anesthesia Technique: Spinal Anesthesia Airway Planned: Natural Airway Pain Management: Surgeon and patient request nerve block Monitors Used: Standard Monitors
--- NOTE | 2022-02-20 10:01 | W.ANESNERVE ---
Nerve Block Single Injection Procedure Date and Time Date Performed: 02/20/22 Procedure Start: 09:40 Location Where Procedure Performed Procedure Location: Day Surgery Unit Reason Performed: Postoperative Analgesia Requesting Provider: Efrain Chin Timeout Performed Timeout Performed: Yes Monitoring Used ECG, Blood Pressure and SpO2 Sterility Sterility: Hand Hygiene, Surgical Cap, Surgical Mask, Sterile Gloves and Chlorhexidine Sedation Given During Procedure Sedation Given (Indicate Dose Given): Versed IV Dose:: 2 mg Patient Mental Status Patient Mental Status: Sedate with meaningful communication Nerve Block 1st Nerve Block: Laterality: Left Block Type: Adductor Canal Needle / Catheter Used: 100mm SonoPlex II Local Anesthetic Bolus (Indicate Dose Given): Lidocaine used for local infiltration of skin, Injected in 3-5ml increments after negative blood aspiration and Bupivacaine 0.25% Dose:: 15 ml Additives (Indicate Dose Given): Precedex Dose:: 80 mcg Ultrasound: Sterile probe cover and gel used Ultrasound Image Saved?: Yes Nerve Stimulator: Not Used Paresthesia: None Procedure Tolerated: No Complications Procedure Outcome: Successful Performed By: Bill Maxwell
[2022-02-20] MEDS: ceFAZolin 2 GM/50 ML BAG IVPB (10:19)
--- NOTE | 2022-02-20 13:11 | ROE_ITS ---
Date of service: 02/20/22 Time of Service: 11:45 Operative Note Operative Note DATE OF PROCEDURE: 02/20/22 PRE-OP DIAGNOSIS: Knee Osteoarthritis POST-OP DIAGNOSIS: same PROCEDURE: Left Total Knee Replacement SURGEON: Efrain Chin ANESTHESIA TYPE: Spinal Refer to Anesthesia Record ESTIMATED BLOOD LOSS: 100 PATHOLOGY: none sent TOURNIQUET TIME: 0 COMPLICATIONS: None Patient was transported to: PACU Patient's condition: stable Implants: 1. Depuy Attune Cementless Posterior Stabilized Femoral Component, Size 5 2. Depuy Attune Cementless Rotating Platform Tibial Component, Size 5 3. Depuy Attune 5x12 PS/RP Poly 4. Depuy Attune Patellar Component, Size 35 Indications: I have seen Naila in clinic for symptoms of knee arthritis, confirmed with radiographic findings. She has exhausted nonoperative methods and was having significant limitations in daily function and desired better function and less pain. I discussed the technical details of a knee replacement. I explained the risks of the procedure to include, but not limited to, bleeding, infection, pain, stiffness, fracture, damage to nerves and vessels, damage to muscles and tendons, loosening, need for repeat procedure, blood clot and cardiopulmonary demise. Despite these risks, Naila elected to proceed. Findings: There was significant signs of arthritis throughout the knee. Procedure Description: Naila was greeted in the preoperative holding area where the correct side was identified and marked. The consent was reviewed with the patient and signed. The history and physical was updated. All questions were answered. Preoperative medications were administered: Acetaminophen 1000mg, Celebrex 400mg, and Gabapentin 300mg. An adductor canal block was then administered by the anesthesia team in the PACU. Naila was taken back to the operating room. A spinal anesthestic was then administered. The patient was placed into the supine position on the operating room table. A nonsterile tourniquet was placed high onto the leg but only used for cementing. Posts were placed for positioning during the procedure. All bony prominences were well padded. Prophylactic antibiotics in the form of Cefazolin were administered. 1g of Tranxemic Acid was given intravenously within 30 minutes of incision. The left leg was then prepped with Chloraprep and draped in a standard fashion with impervious stockinette. A second prep with Chloraprep was performed prior to application of Iodine impregnated skin protection. A timeout to confirm correct identity, side and site, procedure, allergies, anesthesia, and medical concerns was performed. With the knee in some flexion, a midline incision was made overlying the knee. Full thickness skin flaps were raised once the extensor mechanism was encountered. These were raised medially and laterally. Any bleeding was controlled with electrocautery. Once the extensor mechanism was fully exposed, a medial parapatellar arthrotomy was performed in a flexed position. All bleeding from the arthrotomy and the geniculate arteries was coagulated. A medial subperiosteal peel was performed with electrocautery to the midcoronal plane. Due to the significant varus deformity the entire medial tibial plateau was exposed. The fat pad was removed while keeping the patellar tendon protected. The anterior distal femur synovium was removed for later visualization. The ACL and PCL were resected and the anterior horn of the lateral meniscus was transected. The knee was then flexed with the patella everted. Large osteophytes from the tibia were removed. Large osteophytes from the femur were removed. Using a step drill, and based on preoperative templating, the femoral canal was entered. This was done with a step drill without any difficulty. The intramedullary distal femoral cut guide was inserted, set to a 5 degree valgus cut and 9mm cut thickness. The distal femoral cut guide was then held in position and pinned. With the soft tissues protected, the distal cut was performed. This was passed over a few times to ensure a planar cut. I then turned attention to the tibia. The extramedullary guide was placed onto the leg. The distal aspect was slid medial to adjust for position of center of ankle and stay in line with shaft of the tibia. Approximately 3-5 degrees of posterior slope was kept in the proximal cutting guide. The center of the guide was aligned with the PCL. The stylus was used to assess cut thickness. The medial side, most involved side, was set for a 4mm cut. This was then held in position and pinned into place with 2 additional pins and a cross pin for stability. The medial and lateral collateral ligaments were protected and the cut was performed. With this completed, it was assessed and noted to be of appropriate dimensions. The guide was removed. A spacer block was inserted and the knee was brought into extension. At this point there is more gapping with varus stress and what I was expecting. I analyzed the cut of the femur as well as the cut of my tibia and it all seemed appropriate. Given her severe varus deformity I then went back to the tibia and recut the tibia and slight amount of varus to open up the medial side. I made sure not to cut any more off the lateral side than necessary. I continued with a medial release around the medial side of the tibia and removed any bone spurs from the medial and posterior medial tibia, while protecting the MCL. The dog bone was reinserted with a thicker plastic. The 12 mm spacer block provided full extension, without hyperextension and with stability of both the medial and lateral collateral ligaments was assessed. The pins from the femur and the tibia were then removed. The distal femur was then sized. The anterior stylus was placed onto the lateral ridge of the anterior femur. This indicated a size 5 femur. The external rotation of the guide was adjusted to 3 degrees to match the epicondylar axis, perpendicular to [place]?s line. The 4-in-1 cutting guide was the placed. The posterior medial femur cut was evaluated and appeared of good thickness. The spacer block was inserted underneath the cutting guide and stability was confirmed in 90 degrees of flexion. An janeen wing was used to confirm appropriate position of the anterior cut to avoid notching. This cutting guide was ensured to be flush on the cut surface and then pinned into place with headed pins. While protecting the soft tissues, quad tendon, and collateral ligaments, the anterior and posterior cuts were performed with a saw. The central two pins were removed and the posterior and anterior chamfers were cut next. The notch-cutting guide was placed. This was pinned to lateralize the femoral component as much as possible while keeping it flush on the cut surface. This was then pinned into position. A reciprocating saw was used to make the notch cut. A rasp smoothed the cut surfaces. The medial and lateral menisci were removed. A trial femoral component was then inserted, impacted down to the cut surfaces, and the lug holes were drilled. A provisional trial tibial component was placed and the knee was brought through range of motion. The patella was tracking without thumbs. A size 12mm polyethylene component provided the best range of motion and stability with less than 2mm gapping with medial and lateral stress and full extension without significant hyperextension. The tibial cut surface was fully exposed. The tibia was then sized as a 5. The tibia had been previously marked during trialing to correspond to the center of the tibial component to help with rotation. The trial was aligned to this alan, approximately rotated to the medial 1/3rd of the tibial tubercle. The trial was pinned into place. The tibia was prepared with a reamer and a keel punch and lug holes. The knee was then brought into extension and the patella was measured as 24mm. Using the patellar clamp and cut guide, this was resected to a flat surface with at least 13mm of thickness remaining. The size 35 patella fit the best. This was oriented and then clamped into position. The lugs were drilled. The trial components were removed. The final components were opened on the back table. The periosteal and capsular tissues, especially posteriorly, around the knee were then systematically injected with a periarticular cocktail consisting of 246mg of Ropivacaine, 0.5mg of Epinephrine, 0.08mg of Clonidine, and 30mg of Ketorolac, diluted to 100cc. On the back table, with the implants opened, the cement was mixed. One batch of high viscosity cement was prepared with vacuum assistance. After the cement was ready a small amount was placed on the cut surface of the patella and the patellar button was clamped into position and held. While the cement was hardening, the cementless knee components were placed. Starting with the tibial component, the tibia was subluxed anteriorly and the lug holes of the component were lined up. The tibia was then impacted with an impactor and mallet until the tibial component was in contact with the tibia. Then, the femoral component was inserted. The lug holes were aligned and the component was impacted into position. The 5x12mm PS/RP polyethylene was then inserted. The knee was irrigated with Surgiphor Betadine solution. This was allowed to sit in the knee for 3 minutes and then it was irrigated out with saline. After the cement had finally cured, approximately 15min, the clamp was removed from the patella and the knee was taken through range of motion. The patella was tracking with a no-thumbs technique. The capsule was then reapproximated with a No. 1 Vicryl at multiple locations. The capsule was finally closed with a No. 2 Stratafix, barbed suture. The second dosing of 1g TXA was started. Deep tissues were then reapproximated with 0 Vicryl and 2-0 Vicryl. The skin was closed with a running 3-0 Monocryl in a subcuticular fashion. This was reinforced with skin glue. A Mepilex silver dressing was applied along with a [id number] UCHE wrap. A CryoCuff was applied. Naila was transferred to the hospital bed without difficulty an suffering no apparent complication. Naila has a good prognosis. Physical therapy will start today and without restrictions, weight-bearing as tolerated. Aspirin 81mg BID will be used for DVT prophylaxis.
[2022-02-20] MEDS: oxyCODONE 5 MG TAB PO (13:37)
--- NOTE | 2022-02-20 14:47 | PDOC.DSDIS_ITS ---
Discharge Plan Disposition Patient Disposition: HOME Condition: Stable Discharge Details Reason For Visit: Left TKA Attending Provider: Efrain Chin Primary Care Provider: Jennifer Best Home Meds and New Rx's Prescriptions: New aspirin 81 mg tablet,delayed release (DR/EC) 81 mg PO BID Qty: 60 0RF acetaminophen 500 mg capsule 1,000 mg PO Q8H PRN PRNQty: 90 0RF gabapentin 300 mg capsule 300 mg PO QHS Qty: 14 0RF oxycodone 5 mg tablet 5 mg PO Q4H PRNQty: 18 0RF Continued amlodipine 5 mg tablet 5 mg PO DAILY hydrochlorothiazide 50 mg tablet 50 mg PO DAILY sertraline 50 mg tablet 75 mg PO DAILY amitriptyline 50 mg tablet 50 mg PO DAILY celecoxib [Celebrex] 100 mg capsule 100 mg PO BID orphenadrine citrate 100 mg tablet extended release 100 mg PO BID loratadine [Allergy Relief (loratadine)] 10 mg tablet 10 mg PO DAILY triamcinolone acetonide 0.1 % Cream 1 applic TOPICAL BID PRN hydrocortisone 2.5 % Cream 1 applic TOPICAL BID PRN omeprazole 40 MG capsule,delayed release(DR/EC) 40 mg PO DAILY pravastatin 80 MG tablet 80 mg PO HS trazodone 150 MG tablet 150 mg PO HS lisinopril 40 MG tablet 40 mg PO QAM oxaprozin 600 MG tablet 1,200 mg PO DAILY albuterol sulfate [ProAir HFA] 200 PUFF HFA aerosol inhaler 2 puff Inhalation Q4H PRN Discharge Instructions Additional Instructions: Total Knee Discharge Instructions Activity: The most important activity is to walk. You should try to take short walks a few times a day. It is important that when resting you work on keeping the knee straight. Avoid putting a pillow behind the knee as this will encourage flexion. Work on range of motion exercises as provided by Physical Therapy. If you have the [email or web address] bike coming, this will be your primary tool for exercise after the knee replacement. You should use it and follow the directions for the knee. Utilize the other exercises sparingly based on your symptoms. - Start outpatient physical therapy within 2 weeks. - You should wear the PILI hose on both legs for 2 weeks. You may remove these at night. You may also use any compression sock in place of the PILI hose. - Utilize [employer] to review exercises, see videos on exercises and obtain basic information pertaining to your surgery and your recovery. Dressing: Remove the Valdo wrap by 2 days after your surgery and put on the PILI stocking given to you from the hospital. Keep the surgical dressing (underneath the VALDO wrap) in place for at least one week. After the first week it may be removed and replaced with light gauze and tape or nothing. The wound and dressing may get wet after 3 days but avoid soaking the dressing or otherwise it will need to be changed. Many people prefer covering the dressing with cling wrap (saran wrap) to minimize it from getting soaked. If it gets wet, just pat dry. If it starts to peel off then it will need to be changed. Medications: - You should take Tylenol and anti-inflammatory Celebrex as your primary pain control medications. If the Celebrex is too expensive or not covered, please call the office for another alternative (Advil/Ibuprofen or Naproxen/Aleve) - You have been prescribed a stronger pain medication Oxycodone for breakthrough pain, take as needed as prescribed. - You have also been prescribed a stomach acid reduction agent Pantoprozole to help reduce stomach acid and reflux. - You have been prescribed Gabapentin to take at night for restlessness and nerve pain. - You will be taking Aspirin 81mg twice a day for DVT prevention unless instructed otherwise. - If you have constipation you should take Colace or Miralax (both [id number]). It takes most people 3-4 days to have a bowel movement. Follow-up: 2 weeks If you have any acute concerns or questions, please do not hesitate to contact the office at [phone]. You may contact Dr. Chin with any questions after hours through the hospital at [phone] or on his cell phone at [phone]. Stand Alone Forms: Anesthesia Discharge Inst., Eric.Nerve Block Instructions, Liane Rizzo ([facility]U) Referrals: Efrain Chin MD [ [facility] STAFF PHYSICIAN] - Equipment/Supplies: Walker Activity:: Activity as Tolerated Remove Dressings/Wound Care:: Do Not Remove Shower/Bathe:: 72 hours Diet:: As Tolerated Discharge Orders Discharge Orders: Discharge Order (Routine); Ordered 06/15/22 Ordered By: Siomara Rendon DS: Diagnosis Discharge Diagnosis (1) Osteoarthritis of left knee: Status: Acute
--- NOTE | 2022-02-20 14:48 | PDOC.DSDIS_ITS ---
Discharge Plan Disposition Patient Disposition: HOME Condition: Stable Discharge Details Reason For Visit: Left TKA Attending Provider: Efrain Chin Primary Care Provider: Jennifer Best Home Meds and New Rx's Prescriptions: New aspirin 81 mg tablet,delayed release (DR/EC) 81 mg PO BID Qty: 60 0RF acetaminophen 500 mg capsule 1,000 mg PO Q8H PRN PRNQty: 90 0RF gabapentin 300 mg capsule 300 mg PO QHS Qty: 14 0RF oxycodone 5 mg tablet 5 mg PO Q4H PRNQty: 18 0RF Continued amlodipine 5 mg tablet 5 mg PO DAILY hydrochlorothiazide 50 mg tablet 50 mg PO DAILY sertraline 50 mg tablet 75 mg PO DAILY amitriptyline 50 mg tablet 50 mg PO DAILY celecoxib [Celebrex] 100 mg capsule 100 mg PO BID orphenadrine citrate 100 mg tablet extended release 100 mg PO BID loratadine [Allergy Relief (loratadine)] 10 mg tablet 10 mg PO DAILY triamcinolone acetonide 0.1 % Cream 1 applic TOPICAL BID PRN hydrocortisone 2.5 % Cream 1 applic TOPICAL BID PRN omeprazole 40 MG capsule,delayed release(DR/EC) 40 mg PO DAILY pravastatin 80 MG tablet 80 mg PO HS trazodone 150 MG tablet 150 mg PO HS lisinopril 40 MG tablet 40 mg PO QAM oxaprozin 600 MG tablet 1,200 mg PO DAILY albuterol sulfate [ProAir HFA] 200 PUFF HFA aerosol inhaler 2 puff Inhalation Q4H PRN Discharge Instructions Additional Instructions: Total Knee Discharge Instructions Activity: The most important activity is to walk. You should try to take short walks a few times a day. It is important that when resting you work on keeping the knee straight. Avoid putting a pillow behind the knee as this will encourage flexion. Work on range of motion exercises as provided by Physical Therapy. If you have the Figure 1 bike coming, this will be your primary tool for exercise after the knee replacement. You should use it and follow the directions for the knee. Utilize the other exercises sparingly based on your symptoms. - Start outpatient physical therapy within 2 weeks. - You should wear the PILI hose on both legs for 2 weeks. You may remove these at night. You may also use any compression sock in place of the PILI hose. - Utilize [employer] to review exercises, see videos on exercises and obtain basic information pertaining to your surgery and your recovery. Dressing: Remove the Valdo wrap by 2 days after your surgery and put on the PILI stocking given to you from the hospital. Keep the surgical dressing (underneath the VALDO wrap) in place for at least one week. After the first week it may be removed and replaced with light gauze and tape or nothing. The wound and dressing may get wet after 3 days but avoid soaking the dressing or otherwise it will need to be changed. Many people prefer covering the dressing with cling wrap (saran wrap) to minimize it from getting soaked. If it gets wet, just pat dry. If it starts to peel off then it will need to be changed. Medications: - You should take Tylenol and anti-inflammatory Celebrex as your primary pain control medications. If the Celebrex is too expensive or not covered, please call the office for another alternative (Advil/Ibuprofen or Naproxen/Aleve) - You have been prescribed a stronger pain medication Oxycodone for breakthrough pain, take as needed as prescribed. - You have also been prescribed a stomach acid reduction agent Pantoprozole to help reduce stomach acid and reflux. - You have been prescribed Gabapentin to take at night for restlessness and nerve pain. - You will be taking Aspirin 81mg twice a day for DVT prevention unless instructed otherwise. - If you have constipation you should take Colace or Miralax (both [id number]). It takes most people 3-4 days to have a bowel movement. Follow-up: 2 weeks If you have any acute concerns or questions, please do not hesitate to contact the office at [phone]. You may contact Dr. Chin with any questions after hours through the hospital at [phone] or on his cell phone at [phone]. Stand Alone Forms: Anesthesia Discharge Inst., Eric.Nerve Block Instructions, Liane Rizzo ([facility]) Referrals: Efrain Chin MD [ [facility] STAFF PHYSICIAN] - Equipment/Supplies: Walker Activity:: Activity as Tolerated Remove Dressings/Wound Care:: Do Not Remove Shower/Bathe:: 72 hours Diet:: As Tolerated Discharge Orders Discharge Orders: Discharge Order (Routine); Ordered 06/15/22 Ordered By: Siomara Rendon DS: Diagnosis Discharge Diagnosis (1) Osteoarthritis of left knee: Status: Acute
--- NOTE | 2022-02-20 15:14 | PT.INIE ---
PT Notes Visit Reasons: Left TKA Physical Therapy Inpatient Initial Evaluation Date: 02/20/22 Referring Doctor: Siomara Rendon/Efrain Chin MD PT Orders: PT CONSULT: s/p ortho surgery Precautions: Fall. Standard. Left LE WBAT with AD Patient Profile/Admitting Diagnosis: Naila is a 66 yo female with primary unilateral osteoarthritis of the left knee and is status post left total knee arthoplasty on postoperative day 0. PMHX: See EMR Social History/Home Situation: Lives in ground floor apartment with no steps to enter. Grand daughter lives with her and daughter is in home next door on same property. Patient was previously ambulating with [facility]. Had right TKA in 2011. Equipment Owned/DME: [facility] Subjective: Cleared by nursing to see patient and patient is agreeable to PT. Patient is resting in bed at time of consult. Objective: General Observation: Unpleasant, mildly sporadic/spontaneous Mental Status: A&O x3 Pain: Mild pain in left knee ROM: Right Lower Extremity: Hip flexion WFL. Hip abduction WFL. Knee 0-90 degrees. Ankle dorsiflexion WFL. Ankle plantarflexion WFL. Left Lower Extremity: Hip flexion WFL. Hip abduction WFL. Knee flexion WFL. Knee extension WFL. Ankle dorsiflexion WFL. Ankle plantarflexion WFL. Strength: Right Lower Extremity: Hip flexors 5/5. Knee flexors 5/5. Knee extensors 5/5. Ankle dorsiflexors 5/5. Ankle plantarflexors 5/5. Left Lower Extremity: Hip flexors 5/5. Knee flexors 3/5. Knee extensors 3/5. Ankle dorsiflexors 5/5. Ankle plantarflexors 5/5. Sensation: Intact as to pain and pressure on bilateral lower extremities. Bed Mobility/Transfers: Supine to sit: Supervision Sit to supine: Supervision Sit to stand: CGA Stand to sit: Supervision Gait: Ambulated 60 ft with FWW using step to gait, Ambulated 60 ft with crutches using step to gait - posterior balance loss initially Stairs: Not assessed Balance: Static Sitting: Normal Dynamic Sitting: Good Static Standing: Fair Dynamic Standing: Poor Therapeutic Exercise (11316) for ROM, strength, and endurance: 10 minutes Instructed patient in slower, more controlled mobility with crutches Discussed keeping her left knee moving for ROM Not set up for outpatient PT Safe mobility getting on and off toilet Special Tests: Mobility Limitations Standardized Measure [facility] AM-PAC 6 clicks Basic Mobility Inpatient Short Form: Raw Score: 14 CMS Score: 61.29% Informed Consent/Education: Patient instructed in purpose of PT consult and plan of care. Assessment: Naila demonstrates functional mobility decline requiring the use of more restrictive assistive device for all mobility ADL performance to maximize independence and reduce fall risk. Patient presents with clinical signs and symptoms consistent with current/admitting diagnoses that have resulted to mobility limitations, gait instability, generalized weakness, and impairment of motor control as demonstrated by the following impairment level findings: 1. Decreased strength to left knee major muscle groups 2. Impaired standing balance 3. Impaired activity tolerance 4. Limitation of joint range of motion in left knee Impairments are contributing to the following functional limitations: 1.? Inability to safely ambulate without assistive device 2.? Increase completion time for mobility ADL performance 3.? Increased fall risk Patient is assessed as a Low complexity based on the following: History: 66 year old female with impairment level findings, functional limitations, and past medical history as indicated above Examination: Demonstrable impairment in strength, balance, and mobility level with underlying impairments and functional limitations as documented above Presentation: Stable Decision Making: Low complexity Plan of Care/Treatment Plan: PT evaluation only for functional mobility training using recommended AD. Discharge Plan DISCHARGE RECOMMENDATIONS: Home with home health versus outpatient PT services TREATMENT CODE/TIME: 14:00-14:25 (25 minutes), [id number], [id number] Thank you for the opportunity to participate in the care of this patient. Ivon Rushing, PT, DPT, OCS [facility] [place], [place]
--- NOTE | 2022-02-20 16:08 | W.ANESPOSTOP ---
Postoperative Evaluation Date, Time and Location Date Performed: 02/20/22 Time Performed: 16:08 Patient Location: Day Surgery Unit Vital Signs Most Recent Imported Vital Signs: Most Recent Vital Signs Temp Pulse Resp BP Pulse Ox 35.9 C L 89 16 110/79 96 02/20/22 13:28 02/20/22 13:28 02/20/22 13:28 02/20/22 13:30 02/20/22 13:28 Pain Score Most Recent Pain Score: Most Recent Pain Score Pain Level 4 02/20/22 13:28 Assessment Mental Status: Awake (Alert & Oriented to Patient Baseline) Airway and Respiratory Function: Patent airway with normal (patient baseline) respiratory exam Cardiovascular Function: Hemodynamically Stable Hydration Status: Adequately Hydrated Nausea & Vomiting: No Nausea or Vomiting Pain: Pain is tolerable per patient Peripheral Nerve Block: Regional nerve block not resolved at time of post operative discharge Postoperative Comments:: Patient seen earlier in [facility]
== END 2022-02-20 15:09 | disposition home or self-care (01) ==
PROVIDERS: PCP Physician Assistant; Visit Provider Student in an Organized Health Care Education/Training Program
PROC: (CPT 27447; principal; 2022-02-20 11:15)
DX: M17.12 Unilateral primary osteoarthritis, left knee (principal); F10.10 Alcohol abuse, uncomplicated; F32.A Depression, unspecified; M79.7 Fibromyalgia; Z87.891 Personal history of nicotine dependence; E55.9 Vitamin D deficiency, unspecified; K58.9 Irritable bowel syndrome, unspecified
CPT/HCPCS: 27447; 76942; 97110; 97161; J0690; J1885; J2250; J2370; J2405

== ENCOUNTER 2023-07-18 16:29 | Outpatient (REF) | payer MEDICAID, SELFPAY ==
[2023-07-18 19:03] LABS: ALT 21 U/L (14-59); AST 18 U/L (15-37); Alkaline Phosphatase 69 U/L (46-116); Anion Gap 8.2 mmol/L (3-11); BUN 24 mg/dL (7-18); Bilirubin, Total 0.2 mg/dL (0.2-1.0); CO2 27.8 mmol/L (21.0-32.0); Calcium 9.8 mg/dL (8.5-10.1); Chloride 102 mmol/L (98-107); Estimated GFR 62.52 (mL/min/1.73m2); Glucose 118 mg/dL (74-106); LDL CHOLESTEROL 109 mg/dL (<100); Potassium 4.3 mmol/L (3.5-5.1); Sodium 138 mmol/L (136-145); Total Protein 7.3 g/dL (6.4-8.2)
[2023-07-18 19:24] LABS: Vitamin D 25 Total 14.6 ng/mL (30-100)
== END 2023-07-18 16:30 | disposition home or self-care (01) ==
LOC: NCHCN 16:29
PROVIDERS: PCP Physician Assistant; Visit Provider Physician Assistant
DX: I10 Essential (primary) hypertension (principal); E78.5 Hyperlipidemia, unspecified; E55.9 Vitamin D deficiency, unspecified
CPT/HCPCS: 80053; 82306; 83721

== ENCOUNTER 2024-02-25 15:25 | Outpatient (REF) | payer MEDICAID, SELFPAY ==
[2024-02-25 20:41] LABS: Vitamin D 25 Total 20.7 ng/mL (30-100)
== END 2024-02-25 15:26 | disposition home or self-care (01) ==
LOC: NCHCN 15:25
PROVIDERS: PCP Physician Assistant; Visit Provider Physician Assistant
DX: E55.9 Vitamin D deficiency, unspecified (principal)
CPT/HCPCS: 82306

== ENCOUNTER 2024-11-11 21:29 | Outpatient (REF) | payer MEDICAID, SELFPAY ==
[2024-11-11 20:29] LABS: ALT 19 U/L (14-59); AST 19 U/L (15-37); Albumin 4.5 g/dL (3.4-5.0); Alkaline Phosphatase 60 U/L (46-116); Anion Gap 9.3 mmol/L (3-11); BUN 30 mg/dL (7-18); Bilirubin, Total 0.4 mg/dL (0.2-1.0); CO2 26.7 mmol/L (21.0-32.0); CREATININE 1.3 mg/dL (0.55-1.02); Calcium 9.9 mg/dL (8.5-10.1); Chloride 103 mmol/L (98-107); Estimated GFR 45.35 (mL/min/1.73m2); Glucose 113 mg/dL (74-106); Potassium 4.4 mmol/L (3.5-5.1); Sodium 139 mmol/L (136-145); Total Protein 7.8 g/dL (6.4-8.2); Vitamin D 25 Total 35 ng/mL (30-100)
== END 2024-11-11 21:30 | disposition home or self-care (01) ==
LOC: NCHCN 21:29
PROVIDERS: PCP Physician Assistant; Visit Provider Physician Assistant
DX: E55.9 Vitamin D deficiency, unspecified (principal); I10 Essential (primary) hypertension
CPT/HCPCS: 80053; 82306